=== PATIENT | female | born 1990 | race Caucasian/White ===

== ENCOUNTER 2016-08-14 09:40 | Emergency (ER) | payer MEDICAID ==
[~2016-08-14] VITALS: Ht 147.3 cm; Wt 46.5 kg
[~2016-08-14 09:40] MED LIST: CALC600T11 PO; FER325 PO; IBUP800T25 PO; PREN1TAB62 PO; PSEU30TA38 PO
[2016-08-14 09:55] VITALS: Ht 147.3 cm; Wt 46.5 kg
[2016-08-14 10:28] LABS: URINE BLOOD (Dip) POC 3+ (NEGATIVE)
[2016-08-14 11:11] LABS: ADD SCAN DIFF NO
--- NOTE | 2016-08-14 11:11 | RADRPT ---
PROCEDURE: OBSTETRICAL ULTRASOUND WITH ENDOVAGINAL IMAGES CLINICAL INDICATION: Vaginal Bleed () TECHNIQUE: Multiple sonographic images of the pelvis were obtained utilizing a transabdominal and endovaginal technique. The images were reviewed on a PACS workstation. COMPARISON: None. LMP: 07/02/1969 Gestational age by LMP: 6 weeks, 1 day FINDINGS: The uterus measures 7.7 x 3.7 x 4.2 cm. The endometrial echo complex measures 4 mm in thickness. T here is no evidence of an intrauterine . The right ovary measures 4.2 x 3.4 x 3.5 cm. The left ovary measures 5.7 x 3.7 x 5.1 cm. There is no rmal vascular flow in both ovaries. There is a 4.5 cm cystic lesion in the right ovary with low level eccentric internal echoes. A curv ilinear septation without vascular flow is noted eccentrically within it. There is a 5.2 cm simple cystic lesion in the left ovary. It is not associated with vascular flow. No significant pelvic free fluid is identified. IMPRESSION: No evidence of an intrauterine or significant endometrial thickening. Findings may be d ue to an early intrauterine although an ectopic cannot be entirely excluded. Sh ort-term follow-up ultrasound and serial Beta HCG measurements are recommended for further evaluatio n. There is a 4.5 cm complex cystic lesion in the right ovary which is nonspecific and may be a hemorrh agic/corpus luteal cyst although an ectopic is not entirely excluded, especially given the presence of the curvilinear septation which resembles a yolk sac. Attention on follow-up is recomm ended. 5.2 cm simple cystic lesion in the left ovary may be an enlarged follicular cyst of the lesions of t his size are often incompletely evaluated with ultrasound. Attention on follow-up is recommended. RPTAT: EE Physician Renetta Date Time Electronically viewed and signed by Physician Renetta on 08/14/2016 11:11 /
[2016-08-14 11:16] LABS: BASOPHILS % 0.4 % (0.0-2.0); EOSINOPHILS # 0.1 10^3/ul (0.0-0.5); EOSINOPHILS % 1.2 % (0.0-7.0); HEMATOCRIT 36.1 % (37.0-47.0); HEMOGLOBIN 12.3 g/dl (12.0-16.0); LYMPHOCYTES # 1.6 10^3/ul (0.8-2.9); LYMPHOCYTES % 23.6 % (15.0-51.0); MEAN CORPUSCULAR HEMOGLOBIN 31.7 pg (29.0-33.0); MEAN CORPUSCULAR HGB CONC 34.1 g/dl (32.0-37.0); MEAN PLATELET VOLUME 9.1 fl (7.4-10.4); MONOCYTE # 0.5 10^3/ul (0.3-0.9); MONOCYTES % 6.6 % (0.0-11.0); NEUTROPHIL # 4.6 10^3/ul (1.6-7.5); NEUTROPHILS % 67.9 % (39.0-77.0); PLATELET COUNT 242 10^3/UL (140-415); RED BLOOD COUNT 3.88 10^6/ul (4.20-5.40); RED CELL DISTRIBUTION WIDTH 12.8 % (11.5-14.5); WHITE BLOOD COUNT 6.8 10^3/ul (4.8-10.8)
--- NOTE | 2016-08-14 12:41 | ERD ---
ER Documentation Chief Complaint Date/Time DATE: 08/14/16 TIME: 12:38 Chief Complaint vaginal bleeding and pelvic pain x this am 4 weeks HPI This 25-year-old female presents with vaginal bleeding the last day. She has a positive test at home twice last week. She has some mild cramping. She has no tissue although may have had a clot yesterday. She denies any fevers , vomiting, additional symptoms. She is a G5 para 1. ROS All systems reviewed and are negative except as per history of present illness. Medications Home Meds Active Scripts Ibuprofen* (Motrin*) 800 Mg Tab, 800 MG PO Q6, #30 TAB Prov:KRYSTYNA HATFIELD PA-C 06/28/15 Pseudoephedrine Hcl* (Pseudoephedrine Hcl*) 30 Mg Tablet, 30 MG PO Q6 Y for CONGESTION, #30 TAB Prov:KRYSTYNA HATFIELD PA-C 06/28/15 Reported Medications Ferrous Sulfate* (Ferrous Sulfate*) 325 Mg Tabec, 325 MG PO DAILY, TAB 04/03/14 Calcium Carbonate* (Calcium Carbonate*) 600 MG Ca Tab, 600 MG PO DAILY, TAB 04/03/14 Vit-Iron Fumarate-FA ( Vitamin Tablet) 1 Each Tablet, 1 TAB PO DAILY, TAB 04/03/14 Allergies Allergies: Coded Allergies: No Known Allergies (Unverified Allergy, Unknown, 08/14/16) Uncoded Allergies: NO KNOWN ALLERGIES (Allergy, Unknown, 05/26/14) PMhx/Soc Medical and Surgical Hx: pt denies Medical Hx, pt denies Surgical Hx History of Surgery: No Anesthesia Reaction: No Hx Neurological Disorder: No Hx Respiratory Disorders: No Hx Cardiac Disorders: No Hx Psychiatric Problems: No Hx Miscellaneous Medical Probl: No Hx Alcohol Use: No Hx Substance Use: No Hx Tobacco Use: No Smoking Status: Never smoker Physical Exam Vitals Vital Signs Date Time Temp Pulse Resp B/P Pulse Ox O2 Delivery O2 Flow Rate FiO2 08/14/16 09:55 98.3 62 16 107/64 98 Physical Exam Const: [], [id number]. Head: Atraumatic Eyes: Normal Conjunctiva ENT: Normal External Ears, Nose and Mouth. Neck: Full range of motion..~ No meningismus. Resp: Clear to auscultation bilaterally Cardio: Regular rate and rhythm, no murmurs Abd: Soft, non tender, non distended. Normal bowel sounds Skin: No petechiae or rashes Back: No midline or flank tenderness Ext: No cyanosis, or edema Neur: Awake and alert Psych: Normal Mood and Affect Result Diagram: 08/14/16 1105 Results 24 hrs Laboratory Tests Test 08/14/16 10:33 08/14/16 11:05 Bedside Urine pH (LAB) 6.0 Bedside Urine Protein (LAB) Negative Bedside Urine Glucose (UA) Negative Bedside Urine Ketones (LAB) Negative Bedside Urine Blood 3+ Bedside Urine Nitrite (LAB) Negative Bedside Urine Leukocyte Esterase (L Negative White Blood Count 6.810^3/ul Red Blood Count 3.8810^6/ul Hemoglobin 12.3g/dl Hematocrit 36.1% Mean Corpuscular Volume 93.0fl Mean Corpuscular Hemoglobin 31.7pg Mean Corpuscular Hemoglobin Concent 34.1g/dl Red Cell Distribution Width 12.8% Platelet Count 01467^3/UL Mean Platelet Volume 9.1fl Neutrophils % 67.9% Lymphocytes % 23.6% Monocytes % 6.6% Eosinophils % 1.2% Basophils % 0.4% Nucleated Red Blood Cells % 0.0/100WBC Neutrophils # 4.610^3/ul Lymphocytes # 1.610^3/ul Monocytes # 0.510^3/ul Eosinophils # 0.110^3/ul Basophils # 0.010^3/ul Nucleated Red Blood Cells # 0.010^3/ul Beta HCG, Quantitative < 2.4mIU/ml Procedures/MDM Patient is Rh+. Quantitative hCG is undetectable. Pelvic ultrasound shows no intrauterine . There is a right cystic lesion at the adnexa approximately 4.5 cm. Consider ectopic if . Patient stable amatory throughout the ED course. Patient presents with a history of vaginal bleeding at home positive test but no current evidence of via quantitative hCG. She will be discharged home with primary care follow-up. Patient is advised to follow-up with primary doctor this week and she will follow-up with her doctor for ovarian cyst reevaluation. Patient should continue checking test at home she may return for any new worsening symptoms as directed after instructions with primary care doctor this week. Initial concern for ectopic the minimize given lack of positive test Both urine and blood. There is no signs or symptoms to suggest appendicitis, ovarian torsion, aortic disease, obstruction, additional causes of abdominal pain or cramping. Departure Diagnosis: Primary Impression: Ovarian cyst Laterality: right Qualified Code: N83.201 - Cyst of right ovary Additional Impression: Vaginal bleeding Condition: Stable Patient Instructions: Miscarriage, Spontaneous (Completed), Ovarian Cyst Additional Instructions: ULTRASONIDO NO TIENE EMBARAZO HORITA Y HORMONES ZERO. CHEQUE CON LEES DOCTOR ESTAS SEMANA. HAY UN CYSTE EN OVARIA EN DERECHO. CHEQUE CON LEES DOCTOR PARA MAS TRATAMIENTO. MATTY ROMEO MD Aug 14, 2016 12:41
[2016-08-14 16:32] LABS: URINE BLOOD (Dip) POC 3+ (NEGATIVE)
== END 2016-08-14 12:49 | disposition home or self-care (01) ==
LOC: FTE 09:40
DX: O34.81 Maternal care for other abnormalities of pelvic organs, first trimester (principal); R10.2 Pelvic and perineal pain; Z3A.01 Less than 8 weeks gestation of pregnancy
CPT/HCPCS: 36415; 76801; 76817; 81003; 84702; 85025; 86900; 86901; Z7502

== ENCOUNTER 2017-09-08 15:04 | Emergency (ER) | END 2017-09-08 17:41 | disposition home or self-care (01) ==

== ENCOUNTER 2018-08-20 01:02 | Outpatient (CLI) | payer MEDICAID ==
[~2018-08-20] VITALS: Ht 152.4 cm; Wt 56.7 kg
[~2018-08-20 01:02] MED LIST changes: +ACET500C5 PO; -CALC600T11 PO; +CALC600T24 PO; -IBUP800T25 PO; +IBUP800T48 PO
[2018-08-20 01:27] VITALS: BP 108/57; PULSE 68; RESP 18
[2018-08-20] MEDS ORDERED: ACETAMINOPHEN 500 MG TAB PO ONE (03:39)
--- NOTE | 2018-08-20 03:59 | PN ---
Triage Information Date/Time Reason for visit: DFM Weeks of Gestation 32 weeks /Para -0-0-1 Diabetes: none Hypertention: none Objective Vital Signs Date Temp Pulse Resp B/P (MAP) Pulse Ox O2 O2 Flow FiO2 Time Delivery Rate 08/20/18 98.7 68 18 108/57 Room Air 01:27 (74) Heart Rate: 140's Contractions: None Results/Medications Results 24 hrs Laboratory Tests Test 08/20/18 01:30 Urine Color COLORLESS Urine Clarity CLEAR Urine pH 8.0 Urine Specific [place] 1.003 Urine Ketones NEGATIVE Urine Nitrite NEGATIVE Urine Bilirubin NEGATIVE Urine Urobilinogen NEGATIVE Urine Leukocyte Esterase NEGATIVE Urine Hemoglobin NEGATIVE Urine Glucose NEGATIVE Urine Total Protein NEGATIVE Disposition: Discharge Assessment/Plan 27 years old 2 para 1-0-0-1 with single intrauterine at 32 weeks with a KASSANDRA of 10/15/2018 complaining of decreased movement. She denies nausea, vomiting, shortness of breath, chest pain, headache, visual changes, vaginal bleeding or LOF. -FHR: No sign of metabolic acidosis- Category I -Contractions: None -She felt multiple movement during triage observation -Ultrasound performed: Normal NIESHA, BPP 8 out of 8 -Symptoms and sign of labor, preeclampsia, kick count discussed with patient, she voiced understanding. All of her questions answered. -Patient was discharged home in stable condition with the appropriate discharge instructions provided. I would like patient to have close follow-up with her primary physician or outpatient clinic in 1-2 days or return to triage for worsening symptoms or any other urgent concerns. REBECCA BECKER Aug 20, 2018 03:59
--- NOTE | 2018-08-20 04:05 | TRIAGE ---
OB Triage Datetime Report Generated by CPN: 08/20/2018 04:05 Datetime: 08/20/2018 03:44 Labor Evaluation Frequency: none Monitor Mode: External Resting Tone [place]: Relaxed Heart Rate FHR Baseline Rate: 135 Monitor Mode: External US Variability: Moderate 6-25 bpm Accelerations: 15X15 Decelerations: None Category: Category I Datetime: 08/20/2018 03:00 Labor Evaluation Frequency: NONE Monitor Mode: External Resting Tone [place]: Relaxed Heart Rate FHR Baseline Rate: 135 Monitor Mode: External US Variability: Moderate 6-25 bpm Accelerations: 15X15 Decelerations: None Category: Category I Datetime: 08/20/2018 02:09 Time of Arrival: 08/20/2018 00:53 EGA: 32.0 Arrived By: Ambulatory Arrived From: Home Chief Complaint: c/o DFM since yesterday Movement: Decreased Contractions: Denies/Absent Rupture of Membranes: Denies Vaginal Bleeding: None Vaginal Discharge: Denies Recent Sexual Intercouse: Denies Abdominal Trauma: Not Applicable Patient Complaints: Back Pain Time Provider Notified: 08/20/2018 01:40 Provider Notified: [email or web address] Initial Plan: EFM, CALL MD Datetime: 08/20/2018 02:00 Labor Evaluation Frequency: NONE Monitor Mode: External Resting Tone [place]: Relaxed Heart Rate FHR Baseline Rate: 135 Monitor Mode: External US Variability: Moderate 6-25 bpm Accelerations: 15X15 Decelerations: None Category: Category I Datetime: 08/20/2018 01:27 Stage of : OB Triage Assessment Type: Triage Maternal Assessment Level of Consciousness: Keenly Alert, Responsive DTR's/Clonus: DTRs 2+; No Clonus Headache: Denies Blurred Vision: No Respiratory Effort: Unlabored; Regular Rhythm; Equal Expansion Breath Sounds, Left: Clear and Equal Breath Sounds, Right: Clear and Equal Nausea/Vomiting: Denies RUQ Epigastric Pain: Denies Facial Edema: None Temperature Route: Oral Fall Risk Assessment History of Falling: (0) No Secondary Diagnosis: (0) No Ambulatory Aid: (0) Bedrest/Nurse Assist IV Therapy: (0) No Gait: (0) Normal/Bedrest/Immobile Mental Status: (0) Oriented to Own Ability Fall Score: 0 Fall Risk Score Definition: No Risk: No action required Pain Assessment Pain Scale: 5 Pain Type: Ache Pain Location: Back Pain Relief Measures: Comfort Measures Datetime: 08/20/2018 01:23 Stage of : OB Triage FHR Baseline Changes: No Baseline Change
== END 2018-08-20 04:00 | disposition home or self-care (01) ==
LOC: OBT 01:02 → L-D 01:04 → OBT 04:00
PROVIDERS: ATTEND Specialist
DX: O36.8130 Decreased fetal movements, third trimester, not applicable or unspecified (principal); Z3A.32 32 weeks gestation of pregnancy
CPT/HCPCS: 76818; 81003; Z7500; Z7610; G0463